=== PATIENT | female | born 1955 | race Caucasian/White ===

== ENCOUNTER → 2016-09-12 | Outpatient (CLI) | payer OTHER ==
[2016-09-12 14:16] LABS: Basophils % (A) 1 %; CH 30.1; CHCM 35.5; Eosinophils # (A) 0.1 k/uL (0-0.7); Eosinophils % (A) 3 %; HCT 42.3 % (34.0-46.0); HDW 2.68; HGB 14.3 gm/dL (11.4-16.0); Luc # (Auto) 0.12; Luc % (Auto) 2; Lymphocytes # (A) 2.3 k/uL (1.0-4.8); Lymphocytes % (A) 45 %; MCH 28.8 pg (25.0-35.0); MCHC 33.8 g/dL (31.0-37.0); MCV 85.3 fL (80.0-100.0); Mean Platelet Volume 6.9; Monocytes # (A) 0.3 k/uL (0-1.0); Monocytes % (A) 7 %; Neutrophils # (A) 2.2 k/uL (1.3-7.7); Neutrophils % (A) 42 %; RBC 4.96 m/uL (3.80-5.40); RDW 12.5 % (11.5-15.5); WBC 5.1 k/uL (3.8-10.6); WBC (Perox) 4.87
[2016-09-12 14:45] LABS: ALT 19 U/L (9-52); AST 24 U/L (14-36); Alkaline Phosphatase 105 U/L (38-126); Anion Gap 8 mmol/L; Blood Urea Nitrogen 24 mg/dL (7-17); Calcium 9.4 mg/dL (8.4-10.2); Carbon Dioxide 28 mmol/L (22-30); Chloride 104 mmol/L (98-107); Glucose 95 mg/dL (74-99); Non-African American GFR(MDRD) >60 (>60 ml/min/1.73 sqM); Potassium 4.1 mmol/L (3.5-5.1); Sodium 140 mmol/L (137-145); Total Bilirubin 0.6 mg/dL (0.2-1.3); Total Protein 7.8 g/dL (6.3-8.2)
--- NOTE | 2016-09-12 17:04 | CT ---
EXAMINATION TYPE: CT abdomen pelvis wo con DATE OF EXAM: 09/12/2016 4:55 PM COMPARISON: NONE HISTORY: Right sided flank and hip pain CT DLP: 681.9 mGycm Automated exposure control for dose reduction was used. TECHNIQUE: Helical acquisition of images was performed from the lung bases through the pelvis. FINDINGS: Lung bases are clear. There is no pleural effusion. There is a 5 cm cyst in the left lobe of the liver. Bile ducts are not dilated. Gallbladder appears n ormal. There is no pancreatic mass. Spleen appears normal. There is no adrenal mass. Kidneys have normal size and contour. There is no hydronephrosis. I see no renal calculus. There is no retroperitoneal adenopathy. There is no ascites. There is a small umbilic al hernia that contains fat. Appendix is not seen. There is no sign of appendicitis. There is mild th oracolumbar levoscoliosis. There are spondylotic changes in the lumbar spine. Bladder distends smooth ly. There is no sign of a pelvic mass. There is no ascites. There is a second-degree L4-4-5 spondylol isthesis there is now 4 5 spinal stenosis. There is mild spinal stenosis also at L3-4. There is a lef t hip prosthesis with metal artifact. IMPRESSION: NO RENAL STONE OR OBSTRUCTION. HEPATIC CYST. MODERATE L4-5 SPINAL STENOSIS. NO SIGN OF ACUTE ABDOMEN AND PELVIS.
== END | disposition home or self-care (01) ==
LOC: RADCTMAIN 13:42
PROVIDERS: ATTEND Psychiatry & Neurology Neurology
DX: K76.89 Other specified diseases of liver (principal); M48.06 Spinal stenosis, lumbar region; R10.9 Unspecified abdominal pain; Z79.899 Other long term (current) drug therapy
CPT/HCPCS: 74176; 80053; 85025

== ENCOUNTER → 2017-04-03 | Outpatient (CLI) | payer OTHER ==
--- NOTE | 2017-04-03 11:23 | MM ---
Reason for exam: additional evaluation requested from prior study. Last mammogram was performed 4 years and 1 month ago. History: Patient is postmenopausal. Took hormonal contraceptives for 9 years. Physical Findings: Nurse did not find any significant physical abnormalities on exam. MG 3D Diag Mammo W/Cad JAE Bilateral CC and MLO view(s) were taken. ML, spot compression MLO, and spot compression CC view(s) were taken of the left breast. Prior study comparison: March 03, 2013, [facility] DIGITAL RIGHT MAMMOGRAM w/CAD. February 15, 2013, bilateral digital screening mammo w/CAD. There are scattered fibroglandular densities. Focal asymmetry left upper outer quadrant. No significant new findings when compared with previous films. These results were verbally communicated with the patient and result sheet given to the patient on 04/03/17. ASSESSMENT: Negative, BI-RAD 1 RECOMMENDATION: Routine screening mammogram of both breasts in 1 year.
== END ==
LOC: RADMAMWWP 08:41
PROVIDERS: ATTEND Family Medicine
DX: R92.8 Other abnormal and inconclusive findings on diagnostic imaging of breast (principal)
CPT/HCPCS: G0204; G0279

== ENCOUNTER → 2023-01-10 | Outpatient (CLI) | payer MEDICARE ==
--- NOTE | 2023-01-10 19:34 | BD ---
EXAMINATION TYPE: Axial Bone Density DATE OF EXAM: 01/10/2023 CLINICAL HISTORY: 67 years old Female. ICD-10 CODE: M81.0 AGE-RELATED OSTEOPOROSIS W/ Height: 63.5" Weight: 190.3lbs FRAX RISK QUESTIONS: Alcohol (3 or more units per day): No Family History (Parent hip fracture): No Glucocorticoids (More than 3mos): No (Ex: prednisone, prednisolone, methylprednisolone, dexamethasone, and hydrocortisone). History of Fracture in Adulthood: Yes, Left Hip Secondary Osteoporosis: 1. Type 1 Diabetes: No 2. Hyperthyroidism: No 3. Menopause before 45: No 4. Malnutrition: No 5. Chronic liver disease: No Rheumatoid Arthritis: No Current Tobacco Use: No RISK FACTORS HISTORY OF: Hip Fracture (Right/Left): Yes, left When: 2011 Spine Fracture: No History of Wrist Fracture: No Surgery to Spine/Hip(right/left)/Wrist (right/left): No Family History of Osteoporosis: No Active: Yes Diet low in dairy products/other sources of calcium: No Postmenopausal woman: Yes Lost more than 2 inches in height since high school: No Frequent falls: No Poor Health: No Hyperparathyroidism: No Adrenal Insufficiency: No MEDICATIONS: Prednisone or other steroids: No Thyroid Medications: Yes Which medication: Levothyroxine How Lon years Osteoporosis Medications: No Additional Medications: Levothyroxine, Omeprazole, Blood pressure meds, Metroprolol, cor thiazole, Vi t D, Vit B12, Multivitamin Additional History: Left hip fracture EXAM MEASUREMENTS: Bone mineral densitometry was performed using the Vimessa System. Bone mineral density as measured about the Lumbar spine is: ----- L1-L4(G/cm2): 1.499 T Score Values are as follows: ----- L1: 1.4 ----- L2: 2.0 ----- L3: 2.4 ----- L4: 6.0 ----- L1-L4: 2.7 Z Score Values are as follows: ----- L1: 2.3 ----- L2: 2.8 ----- L3: 3.3 ----- L4: 6.9 ----- L1-L4: 3.5 Baseline @[facility] Bone mineral density about the R hip (g/cm2): 0.953 T Score values are as follows: -----R Neck: -1.6 -----R Total: -0.4 Z Score values are as follows: -----R Neck: -0.6 -----R Total: 0.2 Baseline @[facility] FRAX%s: The graph provided illustrates a 14.6% chance for a major osteoporotic fx and a 1.7% chance f or the hips probability for fx in 10 years time. IMPRESSION: Osteopenia (T Score between -2.5 and -1). There is slightly increased risk of fracture and the patient may be considered for treatment. Re-Screen 2-5 years. NOTE: T-SCORE=SD OF THE YOUNG ADULT MEAN.
--- NOTE | 2023-01-13 08:50 | MM ---
Reason for Exam: Screening (asymptomatic). Last mammogram was performed 5 year(s) and 10 month(s) ago. Patient History: Menarche at age 14. First Full-Term at age 19. Postmenopausal. Patient has history of breast feeding. Patient used Hormonal Contraceptives for 9 years. Risk Values: Tamera 5 year model risk: 1.2%. NCI Lifetime model risk: 4.6%. Prior Study Comparison: 02/15/2013 Bilateral Screening Mammogram, [facility]. 03/03/2013 Right Diagnostic Mammogram, [facility]. 04/03/2017 Bilateral Diagnostic Mammogram, [facility]. Tissue Density: The breast tissue is heterogeneously dense. This may lower the sensitivity of mammography. Findings: Analyzed By CAD. There is no suspicious group of microcalcifications or new suspicious mass in either breast. Overall Assessment: Negative, BI-RAD 1 Management: Screening Mammogram of both breasts in 1 year. A clinical breast exam by your physician is recommended on an annual basis and results should be correlated with mammographic findings. Note on Tamera scores and lifetime risk: 1. A Tamera score greater than 3% is considered moderate risk. If this is the case, consider specialist referral to assess eligibility for a risk reducing agent. If overall lifetime risk for the development of breast cancer is 20% or higher, the patient may qualify for future screening with alternating mammogram and breast MRI. Electronically signed and approved by: Sincere Cuello D.O.
== END | disposition home or self-care (01) ==
LOC: RADMAMWWP 13:38
PROVIDERS: ATTEND Internal Medicine Geriatric Medicine
DX: Z12.31 Encounter for screening mammogram for malignant neoplasm of breast (principal); M85.851 Other specified disorders of bone density and structure, right thigh; M81.0 Age-related osteoporosis without current pathological fracture; Z78.0 Asymptomatic menopausal state
CPT/HCPCS: 77063; 77067; 77080

== ENCOUNTER → 2024-03-30 | Outpatient (CLI) | payer MEDICARE ==
--- NOTE | 2024-03-30 11:02 | CA ---
Exercise Stress Test Report Name: Ivis Mckeon Exam Date: 03/30/2024 09:08 Exam Location: [facility] Ht (in): 64 Wt (lb): 170 BSA: 1.83 Ordering Phys: Pino Noonan MD Referring Phys: Jodi Godinez [facility] Technologist: Juan Michel Age: 68 Gender: F : 1955 Procedure CPT: Indications: R94.3 ABNORMAL EKG ICD-10 Codes: Patient History: HTN, HYPERCHOLESTEROLEMIA Medications: Meds past 24 hrs: Pretest Chest Pain: STRESS TEST Jeancarlos Protocol Exercise Duration (min:sec): 09:[address] Depressions (mm): 0 Angina Score: 0 Cano Score: 9 Resting HR (bpm): 75 Peak HR (bpm): 142 Resting BP (mmHg): 146 / 98 Peak BP (mmHg): 168 / 99 MPHR: 154 Target HR: 131 % MPHR: 92 METS: 10.3 Total Dose: Peak Dose: Atropine: Double Product: 31991 BP Response: Stress Termination: MAX EXERTION/TARGET HR Stress Symptoms: NO SYMPTOMS Stress Summary: The patient's target heart rate was achieved ECG ANALYSIS Resting ECG: Sinus rhythm. Normal conduction. No arrhythmias. Normal repolarization. Stress ECG: No ECG evidence of ischemia with exercise. Ventricular premature contraction. CONCLUSIONS Patient falls into low-risk group (DTS >= +5). This associates the patient with an annual CV mortality <= 0.5%. Exercise capacity very good at >10 METS. Normal electrocardiographic response to exercise with no evidence of stress-induced ischemia Dr. Brandon David MD (Electronically Signed) Final Date: 30 March 2024 11:01
--- NOTE | 2024-03-31 16:26 | MM ---
Reason for Exam: Screening (asymptomatic). Last mammogram was performed 1 year(s) and 2 month(s) ago. Patient History: Menarche at age 14. First Full-Term at age 19. Postmenopausal. Patient has history of breast feeding. Patient used Hormonal Contraceptives for 9 years. Risk Values: Tamera 5 year model risk: 1.2%. NCI Lifetime model risk: 4.4%. Prior Study Comparison: 03/03/2013 Right Diagnostic Mammogram, [facility]. 04/03/2017 Bilateral Diagnostic Mammogram, [facility]. 01/10/2023 Bilateral MG 3D screening mammo w/cad, [facility]. Tissue Density: There are scattered areas of fibroglandular density. Findings: Analyzed By CAD. Asymmetric density superior left MLO view is unchanged. There is no suspicious group of microcalcifications or new suspicious mass in either breast. Overall Assessment: Benign, BI-RAD 2 Management: Screening Mammogram of both breasts in 1 year. . Patient should continue monthly self-breast exams. A clinical breast exam by your physician is recommended on an annual basis. This exam should not preclude additional follow-up of suspicious palpable abnormalities. Note on Tamera scores and lifetime risk: 1. A Tamera score greater than 3% is considered moderate risk. If this is the case, consider specialist referral to assess eligibility for a risk reducing agent. 2. If overall lifetime risk for the development of breast cancer is 20% or higher, the patient may qualify for future screening with alternating mammogram and breast MRI. [facility], , 03/31/2024 4:23 PM. Electronically signed and approved by: Kelly Hopson M.D. Radiologist
== END | disposition home or self-care (01) ==
LOC: RADMAMWWP 08:09
PROVIDERS: ATTEND Internal Medicine Geriatric Medicine
DX: Z12.31 Encounter for screening mammogram for malignant neoplasm of breast (principal); R94.31 Abnormal electrocardiogram [ECG] [EKG]; Z78.0 Asymptomatic menopausal state; R92.323 Mammographic fibroglandular density, bilateral breasts
CPT/HCPCS: 77063; 77067; 93017

== ENCOUNTER 2024-07-14 14:56 | Emergency (ER) | payer MEDICARE ==
[2024-07-14 15:07] VITALS: RESP 18; TEMP 97.6
[2024-07-14] MEDS: ASPIRIN 81 MG PO STA (15:59)
[2024-07-14 16:01] LABS: Basophils % (A) 0 %; Eosinophils # (A) 0.2 k/uL (0-0.7); Eosinophils % (A) 3 %; HCT 42.4 % (34.0-46.0); Lymphocytes % (A) 41 %; MCH 28.4 pg (25.0-35.0); MCHC 32.9 g/dL (31.0-37.0); MCV 86.4 fL (80.0-100.0); Mean Platelet Volume 7.5; Monocytes # (A) 0.3 k/uL (0-1.0); Monocytes % (A) 7 %; Neutrophils # (A) 2.3 k/uL (1.3-7.7); Neutrophils % (A) 47 %; Platelet Count 369 k/uL (150-450); RBC 4.91 m/uL (3.80-5.40); RDW 12.8 % (11.5-15.5); WBC 4.8 k/uL (3.8-10.6)
--- NOTE | 2024-07-14 16:03 | XR ---
EXAMINATION TYPE: XR chest 2V DATE OF EXAM: 07/14/2024 3:53 PM COMPARISON: Chest radiographs from 07/14/2024 CLINICAL INDICATION: Female, 68 years old with history of Chest Pain; TECHNIQUE: XR chest 2V Frontal and lateral views of the chest. FINDINGS: Lungs/Pleura: There is no evidence of pleural effusion, focal consolidation, or pneumothorax. Pulmonary vascularity: Unremarkable. Heart/mediastinum: Cardiomediastinal silhouette is unremarkable. Musculoskeletal: No acute osseous pathology. IMPRESSION: No acute cardiopulmonary disease/process. [facility], , 07/14/2024 4:01 PM
[2024-07-14 16:13] LABS: ALT 23 U/L (4-34); AST 28 U/L (14-36); African American GFR (CKD) >90 (>60 ml/min/1.73 sqM); Alkaline Phosphatase 91 U/L (38-126); Anion Gap 7 mmol/L; Blood Urea Nitrogen 16 mg/dL (7-17); Calcium 9.3 mg/dL (8.4-10.2); Carbon Dioxide 28 mmol/L (22-30); Chloride 101 mmol/L (98-107); Glucose 101 mg/dL (74-99); Lipase 70 U/L (23-300); Magnesium 1.9 mg/dL (1.6-2.3); Non-African American GFR(CKD) >90 (>60 ml/min/1.73 sqM); Potassium 3.3 mmol/L (3.5-5.1); Sodium 136 mmol/L (137-145); Total Bilirubin 0.6 mg/dL (0.2-1.3)
[2024-07-14 16:26] LABS: Prothrombin Time 10.9 sec (10.0-12.5)
--- NOTE | 2024-07-14 19:21 | ED ---
Chest Pain HPI - General Chief Complaint: Chest Pain Stated Complaint: Chest pain-Irreg EKG Time Seen by Provider: 07/14/24 15:10 Source: patient Mode of arrival: ambulatory Limitations: no limitations - History of Present Illness Initial Comments: 68-year-old female with past medical history of hypertension who presents emergency department with chest pain. Patient reports that she started having chest pain while at work earlier this afternoon. She states she tried to eat something thinking that this might help. She mentions something to her coworkers that she was having symptoms and they referred her over to the emergency department for evaluation. She reports that she has had full cardiac testing to include stress test and echo which were normal. Patient does have a history of hypertension however has been compliant with her medications and her blood pressure is typically well-controlled. The pain starts in the chest and r adiates into the left arm. She denies associated shortness of breath. No ripping or tearing station to her back. No pleuritic pain. No nausea or vomiting. Pain is markedly improved upon hospital arrival. EKG was performed at her work which demonstrates bigeminy rhythm. No other alleviating, precipitating or modifying factors - Related Data Allergies Allergy/AdvReac Type Severity Reaction Status Date / Time Unable to Assess Allergy Verified 07/14/24 15:06 Review of Systems ROS Statement: Those systems with pertinent positive or pertinent negative responses have been documented in the HPI. ROS Other: All systems not noted in ROS Statement are negative. Past Medical History Past Medical History: Hypertension History of Any Multi-Drug Resistant Organisms: None Reported Past Surgical History: Appendectomy, Joint Replacement, Tonsillectomy Additional Past Surgical History / Comment(s): bladder suspension Past Psychological History: No Psychological Hx Reported Smoking Status: Never smoker Past Alcohol Use History: None Reported Past Drug Use History: None Reported General Exam Limitations: no limitations General appearance: alert, in no apparent distress Head exam: Present: atraumatic, normocephalic, normal inspection Eye exam: Present: normal appearance, PERRL, EOMI. Absent: scleral icterus, conjunctival injection, periorbital swelling ENT exam: Present: normal exam, mucous membranes moist Neck exam: Present: normal inspection. Absent: tenderness, meningismus, ly mphadenopathy Respiratory exam: Present: normal lung sounds bilaterally. Absent: respiratory distress, wheezes, rales, rhonchi, stridor Cardiovascular Exam: Present: regular rate, normal rhythm, normal heart sounds. Absent: systolic murmur, diastolic murmur, rubs, gallop, clicks GI/Abdominal exam: Present: soft, normal bowel sounds. Absent: distended, tenderness, guarding, rebound, rigid Extremities exam: Present: normal inspection, full ROM, normal capillary refill. Absent: tenderness, pedal edema, joint swelling, calf tenderness Back exam: Present: normal inspection Neurological exam: Present: alert, oriented X3, CN II-XII intact Psychiatric exam: Present: normal affect, normal mood Skin exam: Present: warm, dry, intact, normal color. 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 sent in by a medical professional or institution (, PA, [employer], urgent care, hospital, or retirement...) When possible be specific @ -Patient was sent in from her work. Patient works for Dr[employer]on[employer] Did you speak to anyone other than the patient for history (EMS, parent, family, police, friend...)? What history was obtained from this source @ -No Did you review nursing and triage notes (agree or disagree)? Why? @ -I reviewed and agree with nursing and triage notes Were old charts reviewed (outside hosp., previous admission, EMS record, old EKG, old radiological studies, urgent care reports/EKG's, retirement records)? Report findings @ -I reviewed the EKG that the patient had done at her work earlier today Differential Diagnosis (chest pain, altered mental status, abdominal pain women, abdominal pain men, vaginal bleeding, weakness, fever, dyspnea, syncope, headache, dizziness, GI bleed, back pain, seizure, CVA, palpatations, mental health, musculoskeletal)? @ -Differential Chest Pain: Stable Angina, Unstable Angina, STEMI, NSTEMI Aortic Dissection, Pneumothorax, Musculoskeletal, Esophageal Spasm GERD, Cholecystitis, Pancreatitis, Zoster, this is not meant to be an all-inclusive list. EKG interpreted by me (3pts min.). @ -Yes and demonstrates sinus rhythm with frequent PVCs. Rate of 65. AR interval 167. QRS 100. QTc of 463. No acute ST segment elevation. Bigeminy rhythm X-rays interpreted by me (1pt min.). @ -Yes which demonstrates no acute process CT interpreted by me (1pt min.). @ -None done U/S interpreted by me (1pt. min.). @ -None done What testing was considered but not performed or refused? (CT, X-rays, U/S, labs)? Why? @ -Echo was considered however patient does not want to stay hospitalized What meds were considered but not given or refused? Why? @ -Pain meds were considered, patient states she is pain-free at this time Did you discuss the management of the patient with other professionals (professionals i.e. , PA, [employer], lab, RT, psych nurse, social economist, base manager, teacher, human resource officer, manager case)? Give summary @ -No Was smoking cessation discussed for >3mins.? @ -No Was critical care preformed (if so, how long)? @ -No Were there social determinants of health that impacted care today? How? (H omelessness, low income, unemployed, alcoholism, drug addiction, transportation, low edu. Level, literacy, decrease access to med. care, [facility], rehab)? @ -No Was there de-escalation of care discussed even if they declined (Discuss DNR or withdrawal of care, Hospice)? DNR status @ -No What co-morbidities impacted this encounter? (DM, HTN, Smoking, COPD, CAD, Cancer, CVA, ARF, Chemo, Hep., AIDS, mental health diagnosis, sleep apnea, morbid obesity)? @ -Hypertension Was patient admitted / discharged? Hospital course, mention meds given and route, prescriptions, significant lab abnormalities, going to OR and other pertinent info. @ -Upon arrival patient seen and evaluated in bed 16. Thorough history and physical exam was performed. Patient placed on continuous pulse ox and cardiac monitoring. Twelve-lead EKG was obtained which demonstrates bigeminy rhythm. Patient has no pain at this time. Laboratory studies are conducted and chest x- ray was performed. I did discuss results with the patient. I did discuss being admitted for serial troponins and echo. Patient does not want to be admitted at this time. I did discuss completing second troponin. Patient was agreeable. This was completed and continues to be negative. Patient wants to go home. She does have a low heart score. She is aware of limitations of what was currently completed in the emergency department. Patient will be discharged and is instructed to follow-up with her primary care doctor. I recommend referral to cardiology for her new diagnosis of bigeminy. Return for any new or worsening symptoms. Patient agreeable plan was discharged in stable condition Undiagnosed new problem with uncertain prognosis? @ -No Drug Therapy requiring intensive monitoring for toxicity (Heparin, Nitro, Insulin, Cardizem)? @ -No Were any procedures done? @ -No Diagnosis/symptom? @ -Acute chest pain, bigeminy rhythm Acute, or Chronic, or Acute on Chronic? @ -Acute Uncomplicated (without systemic symptoms) or Complicated (systemic symptoms)? @ -Complicated Side effects of treatment? @ -No Exacerbation, Progression, or Severe Exacerbation? @ -No Poses a threat to life or bodily function? How? (Chest pain, [place], [place], pneumonia, PE, COPD, DKA, ARF, appy, cholecystitis, CVA, Diverticulitis, Homicidal, Suicidal, threat to staff... and all critical care pts) @ -No Disposition Clinical Impression: Chest pain Disposition: HOME SELF-CARE Condition: Stable Instructions (If sedation given, give patient instructions): Chest Pain (ED) Additional Instructions: Please follow-up with your primary care doctor in 2-4 days. I recommend a cardiology consultation. Return for any new or worsening symptoms Is patient prescribed a controlled substance at d/c from ED?: No Referrals: Pino Noonan MD [Primary Care Provider] - 1-2 days Time of Disposition: 19:21
[2024-07-14 19:22] VITALS: BP 135/86; PULSE 61
== END 2024-07-14 19:23 | disposition home or self-care (01) ==
LOC: EC 14:56
DX: I11.9 Hypertensive heart disease without heart failure (principal); I49.40 Unspecified premature depolarization
CPT/HCPCS: 36415; 71046; 80053; 83690; 83735; 84484; 85025; 85379; 85610; 85730; 93005; 99285